=== PATIENT | male | born 1990 | race Caucasian/White ===

== ENCOUNTER 2021-09-01 05:56 | Day surgery (SDC) | payer BC ==
[2021-08-27 15:13] LABS: BASOPHILS % (AUTO) 0.4 % (0-1); EOSINOPHILS # (AUTO) 0.2 X10'3 (0-0.9); EOSINOPHILS % (AUTO) 2.4 % (0-6); LYMPHOCYTES % (AUTO) 42.7 % (21-51); MEAN CORPUSCULAR HEMOGLOBIN 30.1 PG (27.0-31.0); MEAN CORPUSCULAR HGB CONC 34.5 g/dL (33.0-36.5); MEAN CORPUSCULAR VOLUME 87.2 FL (78-98); MEAN PLATELET VOLUME 7.7 FL (7.4-10.4); MONOCYTES # (AUTO) 0.5 X10'3 (0-0.9); MONOCYTES % (AUTO) 7.2 % (2-12); NEUTROPHILS # (AUTO) 3.3 X10'3 (1.8-7.7); NEUTROPHILS % (AUTO) 47.3 % (42-75); PRE OP HEMATOCRIT 45.5 % (42.0-52.0); PRE OP HEMOGLOBIN 15.7 g/dL (14.0-17.9); PRE OP PLATELET COUNT 231 X10'3 (140-440); RED BLOOD COUNT 5.21 X10'6 (4.70-6.10); RED CELL DISTRIBUTION WIDTH 12.8 % (11.5-14.5)
[2021-08-27 15:19] LABS: PRE OP INR 1.1 INR
[2021-08-27 15:25] LABS: ALBUMIN 4.5 G/DL (3.4-5.0); BLOOD UREA NITROGEN 13 MG/DL (7-18); CALCIUM 9.1 MG/DL (8.5-10.1); CHLORIDE 106 MMOL/L (99-107); CREATININE 1.18 MG/DL (0.60-1.10); PRE OP ANION GAP 9 (8-16); PRE OP BILIRUB, TOTAL 0.7 MG/DL (0.0-1.0); PRE OP GLUCOSE 94 MG/DL (70-104); PRE OP POTASSIUM 3.7 MMOL/L (3.4-5.1); PRE OP SODIUM 144 MMOL/L (135-145); TOTAL PROTEIN 8.3 G/DL (6.4-8.2); eGFR 72 ML/MIN
[2021-08-27 15:26] LABS: ALBUMIN/GLOBULIN RATIO 1.2 (1.1-1.5); PRE OP ALT 30 U/L (30-65); PRE OP AST 16 U/L (10-37)
[2021-08-27 16:22] LABS: ALKALINE PHOSPHATASE 71 IU/L (46-116)
[2021-09-01] VITALS (7 sets, daily range): BP systolic 126–136; BP diastolic 73–89
[~2021-09-01] VITALS: Ht 180.3 cm; Wt 86.9 kg
[~2021-09-01 05:56] MED LIST: NO HOME MEDS; diazepam 5mg tablet PO PRN; famotidine 20mg tablet PO ONE; ringers solution, lacted 1,000 ML IV SCH
[2021-09-01] MEDS ORDERED: methylPREDNISolone acetate 80mg/ml inj**IM only ONE (06:42)
[2021-09-01] MEDS ORDERED: LIDOCAINE 1%/EPI 1:100,000 inj. 10 ML multi-dose vial ONE ×2 (06:42→07:19)
[2021-09-01] MEDS ORDERED: cocaine 4% topical solution 4ml bottle ONE (06:42)
[2021-09-01] MEDS ORDERED: mupirocin 2% ointment 22GM ONE (06:42)
[2021-09-01] MEDS ORDERED: cefTAZidime 1gm inj ONE (06:43)
[2021-09-01] MEDS ORDERED: oxymetazoline 15 ML nasal spray NS ONE (06:43)
[2021-09-01] MEDS: oxymetazoline 15 ML nasal spray NS PRN ×2 (07:13→08:39)
[2021-09-01] MEDS ORDERED: fentaNYL/PF 50MCG/1 ML 2ML syringe ONE (07:48)
[2021-09-01] MEDS ORDERED: midazolam 1 mg/ML 2ml injection ONE (07:49)
[2021-09-01] MEDS ORDERED: propofol inj 20 ML IV ONE (07:49)
[2021-09-01] MEDS ORDERED: ondansetron/PF 4mg/2ml inj ONE (07:50)
[2021-09-01] MEDS ORDERED: LIDOcaine 2% (20mg/ml) 5ml vial ONE (07:50)
[2021-09-01] MEDS ORDERED: morphine 4 MG/ML inj SYRINge IV PRN (07:55)
[2021-09-01] MEDS ORDERED: fentaNYL/PF 50MCG/1 ML 2ML syringe IV PRN ×2 (07:55)
[2021-09-01] MEDS ORDERED: hydrALAZINE 20mg/ml inj. IV PRN (07:55)
[2021-09-01] MEDS ORDERED: morphine 2 MG/ML inj. syringe IV PRN (07:55)
[2021-09-01] MEDS ORDERED: ringers solution, lacted 1,000 ML IV SCH (07:55)
[2021-09-01] MEDS ORDERED: ondansetron/PF 4mg/2ml inj IV PRN (07:55)
[2021-09-01] MEDS ORDERED: labetalol 20mg/4ml (5mg/ml) syringe IV PRN (07:55)
[2021-09-01] MEDS ORDERED: dexamethasone sod phosphate 10mg/ml inj ONE (08:10)
[2021-09-01] MEDS ORDERED: sevoflurane 250ml liquid IH ONE (08:10)
--- NOTE | 2021-09-01 09:24 | NUR ---
Received from OR via , accompanied by Anesthesiologist DR DANIELLE and report given by Anesthesiolgist. AWAKENS TO VOICE. VITALS STABLE. DRESSINGS DI. PARMINDER PAIN.
[2021-09-01] MEDS ORDERED: salt irrigation nasal spray 45 ML SPRAY NS PRN (09:40)
[2021-09-01] MEDS ORDERED: traMADol 50MG tablet PO ONE (10:20)
--- NOTE | 2021-09-01 10:24 | NUR ---
AWAKE AND ORIENTED. VITALS STABLE. NASAL DRESSING AOOLIED. STATES MIN DISCOMFORT. HOME WITH HIS AT THIS TIME.
== END 2021-09-01 10:24 | disposition home or self-care (01) ==
LOC: PAS 05:56
PROVIDERS: ATTEND Otolaryngology
DX: J34.2 Deviated nasal septum (principal); J34.3 Hypertrophy of nasal turbinates; Z79.899 Other long term (current) drug therapy; Z98.890 Other specified postprocedural states; Z72.89 Other problems related to lifestyle; Z79.01 Long term (current) use of anticoagulants
CPT/HCPCS: 30140; 30520; 36415; 80053; 82948; 85025; 85576; 85610; 85730; 87635; A6402; C9250; C9803; J0713; J1040; J2001; J2250; J2405; J2704; J3010; U0003; U0005; Z7506; Z7508; Z7512; A4618; A7000; J1100; J7120